=== PATIENT | female | born 1995 | race Two or more races ===

== ENCOUNTER 2020-05-03 09:53 | Outpatient (CLI) | payer OTHER | END 2020-05-03 09:58 | disposition home or self-care (01) | LOC: SONOGRAMA 09:53 | PROVIDERS: ATTEND Pathology Anatomic Pathology & Clinical Pathology | DX: R59.0 Localized enlarged lymph nodes (principal) ==

== ENCOUNTER 2021-08-30 08:13 | Outpatient (CLI) | payer OTHER | END 2021-08-30 11:05 | disposition home or self-care (01) | LOC: SONOGRAMA 08:13 | DX: R16.0 Hepatomegaly, not elsewhere classified (principal); R59.9 Enlarged lymph nodes, unspecified; I10 Essential (primary) hypertension ==

== ENCOUNTER 2021-09-16 08:48 | Outpatient (CLI) | payer OTHER | END 2021-09-16 08:51 | disposition home or self-care (01) | LOC: SONOGRAMA 08:48 | PROVIDERS: ATTEND Pathology Anatomic Pathology & Clinical Pathology | DX: R59.0 Localized enlarged lymph nodes (principal) ==

== ENCOUNTER 2023-06-18 11:05 | Outpatient (CLI) | payer OTHER | END 2023-06-18 11:13 | disposition home or self-care (01) | LOC: SONOGRAMA 11:05 | PROVIDERS: ATTEND Pathology Anatomic Pathology & Clinical Pathology | DX: R22.1 Localized swelling, mass and lump, neck (principal) ==